=== PATIENT | female | born 1955 | race African-American/Black ===

== ENCOUNTER 2021-11-21 12:43 | Inpatient (IN) | payer MEDICARE, SELFPAY ==
[2021-11-21 13:54] LABS: #Basophils 0.1 thou/uL (0.0-0.2); #Eosinphils 0.1 thou/uL (0.0-0.7); #Lymphocytes 2.8 thou/uL (1.20-3.40); #Monocytes 0.6 thou/uL (0.11-0.59); %Basophils 0.7 % (0.0-1.0); %Eosinophils 1.2 % (0.0-10.0); %Lymphocytes 37.2 % (21.0-51.0); %Neutrophils 52.9 % (42.0-75.0); Hemoglobin 14.6 g/dL (12.0-16.0); Mean Corpuscular HGB CONC 31.9 g/dL (32.0-36.0); Mean Corpuscular Hemoglobin 27.2 pg (27.0-31.0); Mean Corpuscular Volume 85.3 fL (78.0-98.0); Mean Platelet Volume 8.8 fL (7.4-10.4); Platelet Count 285 thou/uL (130-400); RBC Distribution Width 15.1 % (11.5-14.5); Red Blood Cell (RBC) Count 5.36 mill/uL (4.20-5.40); White Blood Cell (WBC) Count 7.6 thou/uL (4.8-10.8)
[2021-11-21 14:11] LABS: ALT (SGPT) 8 U/L (8-55); AST (SGOT) 11 U/L (5-34); Alkaline Phosphatase 84 U/L (40-110); Anion Gap 21 mmol/L (10-20); BUN (Urea Nitrogen) 28 mg/dL (9.8-20.1); Bilirubin, Total 0.6 mg/dL (0.2-1.2); Calc. Creatinine Clearance 0 mL/min (70-130); Calcium 9.9 mg/dL (7.8-10.44); Carbon Dioxide 19 mmol/L (23-31); Chloride 101 mmol/L (98-107); Estimated GFR 38; Globulin 4.2 g/dL (2.4-3.5); Glucose 225 mg/dL (80-115); Potassium 3.4 mmol/L (3.5-5.1); Protein, Total 8.2 g/dL (5.8-8.1); Sodium 138 mmol/L (136-145)
[2021-11-21 14:33] LABS: CKMB 1.4 ng/mL (0-6.6)
[2021-11-21] MEDS ORDERED: Aspirin Chewable 81 MG TAB ONE (17:05)
[2021-11-21] MEDS ORDERED: Nitroglycerin 2% Ointment 1 INCH/1 GM Packet ONE (17:05)
[2021-11-21 17:55] LABS: CKMB 1.4 ng/mL (0-6.6)
[2021-11-21] MEDS ORDERED: Dextrose 50% Abboject 50 ML SYRINGE SLOW IVP PRN (18:21)
[2021-11-21] MEDS ORDERED: HumaLOG 300 UNITS/3 ML VIAL SC PRN (18:21)
[2021-11-21] MEDS ORDERED: Dextrose 5% in Water 1,000 ML IV PRN (18:21)
[2021-11-21] MEDS ORDERED: Docusate 100 MG CAP PO PRN (18:22)
[2021-11-21] MEDS ORDERED: Melatonin 3 MG TAB PO PRN (18:25)
[2021-11-21] MEDS ORDERED: Ondansetron PF 4 MG/2 ML Vial IVP PRN (18:26)
[2021-11-21] MEDS ORDERED: Ondansetron ODT 4 MG TAB PO PRN (18:26)
[2021-11-21] MEDS ORDERED: Electrolyte Replacement Protocol 1 EACH FS SCH ×2 (18:30→18:45)
[2021-11-21] MEDS: hydrALAZINE 20 MG/ML VIAL SLOW IVP PRN (21:27)
[2021-11-21] MEDS: Atorvastatin Calcium 40 MG TAB PO SCH (21:27)
[2021-11-21] MEDS ORDERED: cloNIDine 0.1 MG TAB PO PRN ×2 (21:34→22:05)
[2021-11-21 21:39] LABS: Troponin I 0.021 ng/mL (< 0.028)
[2021-11-21] MEDS: Acetaminophen 325 MG TAB PO PRN (22:11)
[2021-11-21] MEDS ORDERED: Gabapentin 100 MG CAP PO SCH (22:15)
[2021-11-21] MEDS ORDERED: busPIRone HCl 10 MG TAB PO SCH (22:15)
[2021-11-21] MEDS ORDERED: Metoprolol Tartrate 100 MG TAB PO SCH (22:15)
[2021-11-21 22:21] VITALS: BMI 34.9
[2021-11-22] MEDS: hydrALAZINE 20 MG/ML VIAL SLOW IVP PRN (04:00)
[2021-11-22 04:51] LABS: #Basophils 0.1 thou/uL (0.0-0.2); #Eosinphils 0.1 thou/uL (0.0-0.7); #Lymphocytes 4.2 thou/uL (1.20-3.40); #Monocytes 0.7 thou/uL (0.11-0.59); #Neutrophils 3.5 thou/uL (1.40-6.50); %Eosinophils 1.4 % (0.0-10.0); %Lymphocytes 48.7 % (21.0-51.0); %Monocytes 8.4 % (0.0-10.0); %Neutrophils 40.5 % (42.0-75.0); Hemoglobin 12.4 g/dL (12.0-16.0); Mean Corpuscular HGB CONC 34.1 g/dL (32.0-36.0); Mean Corpuscular Hemoglobin 27.9 pg (27.0-31.0); Mean Platelet Volume 8.4 fL (7.4-10.4); Platelet Count 225 thou/uL (130-400); RBC Distribution Width 15.1 % (11.5-14.5); Red Blood Cell (RBC) Count 4.43 mill/uL (4.20-5.40); White Blood Cell (WBC) Count 8.6 thou/uL (4.8-10.8)
[2021-11-22 05:09] LABS: Anion Gap 17 mmol/L (10-20); BUN (Urea Nitrogen) 37 mg/dL (9.8-20.1); Calc. Creatinine Clearance 58 mL/min (70-130); Calcium 9.1 mg/dL (7.8-10.44); Carbon Dioxide 22 mmol/L (23-31); Cardiac Risk 5.6 (Less than 4.5); Chloride 103 mmol/L (98-107); Cholesterol 174 mg/dl (< 200 Desired); Estimated GFR 41; Glucose 144 mg/dL (80-115); HDL Cholesterol 31 mg/dL (>60 Neg Risk); LDL Cholesterol, Calculated 98 mg/dL; Magnesium 1.9 mg/dL (1.6-2.6); Potassium 3.1 mmol/L (3.5-5.1); Sodium 139 mmol/L (136-145); Triglycerides 225 mg/dL (Less than 150)
[2021-11-22 05:15] LABS: Hemoglobin A1c 7.1 % (4.0-6.0)
[2021-11-22] MEDS ORDERED: Magnesium 2 GM/50 ML(in water) 2 GM in Premix Bag 1 BAG IVPB SCH ×2 (06:00→08:00)
[2021-11-22] MEDS ORDERED: Potassium Chloride 20 MEQ TAB PO SCH (08:00)
[2021-11-22] MEDS: Aspirin 81 mg Enteric Coated Tablet PO SCH (08:12)
[2021-11-22] MEDS: busPIRone HCl 10 MG TAB PO SCH ×2 (08:12→22:14)
[2021-11-22] MEDS: Metoprolol Tartrate 100 MG TAB PO SCH ×2 (08:12→22:16)
[2021-11-22] MEDS: metFORMIN 500 MG TAB PO SCH ×2 (08:12→15:37)
[2021-11-22] MEDS: Insulin Glargine 30 UNITS/0.3 ML VIAL SC SCH ×2 (08:13→22:16)
[2021-11-22] MEDS: Enoxaparin Sodium 40 MG/0.4 ML SYRINGE SC SCH (08:13)
[2021-11-22] MEDS: Gabapentin 100 MG CAP PO SCH ×3 (08:13→22:15)
[2021-11-22] MEDS ORDERED: metFORMIN 500 MG TAB PO SCH (09:00)
[2021-11-22] MEDS ORDERED: Amlodipine 10 MG TAB PO SCH (09:00)
[2021-11-22] MEDS: HumaLOG 300 UNITS/3 ML VIAL SC PRN (11:36)
[2021-11-22] MEDS: Acetaminophen 325 MG TAB PO PRN ×2 (11:54→22:17)
[2021-11-22] MEDS ORDERED: NIFEdipine XL 90 MG TAB PO SCH (14:45)
[2021-11-22] MEDS ORDERED: NIFEdipine XL 60 MG TAB PO SCH (15:45)
[2021-11-22] MEDS: Atorvastatin Calcium 40 MG TAB PO SCH (22:14)
[2021-11-22] MEDS: cloNIDine 0.1 MG TAB PO SCH (22:14)
[2021-11-23 06:46] LABS: Hemoglobin 11.6 g/dL (12.0-16.0); Mean Corpuscular HGB CONC 32.2 g/dL (32.0-36.0); Mean Corpuscular Hemoglobin 26.7 pg (27.0-31.0); Mean Corpuscular Volume 82.8 fL (78.0-98.0); Mean Platelet Volume 8.8 fL (7.4-10.4); Platelet Count 218 thou/uL (130-400); RBC Distribution Width 15.2 % (11.5-14.5); Red Blood Cell (RBC) Count 4.36 mill/uL (4.20-5.40); White Blood Cell (WBC) Count 7.3 thou/uL (4.8-10.8)
[2021-11-23 06:47] LABS: Anion Gap 14 mmol/L (10-20); BUN (Urea Nitrogen) 32 mg/dL (9.8-20.1); Calc. Creatinine Clearance 71 mL/min (70-130); Calcium 9.2 mg/dL (7.8-10.44); Carbon Dioxide 26 mmol/L (23-31); Chloride 104 mmol/L (98-107); Estimated GFR 52; Glucose 133 mg/dL (80-115); Potassium 3.5 mmol/L (3.5-5.1); Sodium 140 mmol/L (136-145)
[2021-11-23 06:55] LABS: Bacteria/HPF None Seen HPF (None Seen); Bilirubin Negative (Negative); Blood, Urine Negative (Negative); Clarity Clear (Clear); Glucose, Urine (Dipstick) Normal (Negative); Ketone, Urine Negative (Negative); Leukocyte Negative Leu/uL (Negative); Nitrite Negative (Negative); Protein, Urine (Dipstick) 10 mg/dL (Neg-Trace); Specific Gravity, Urine 1.021 (1.002-1.036); Squamous Epithelial 0-3 HPF (0-3); Urobilinogen Normal mg/dL (Less than 2); WBC/HPF 0-3 HPF (0-3); pH, Urine 5.5 (5.0-9.0)
[2021-11-23] MEDS ORDERED: Potassium Chloride 20 MEQ TAB PO SCH (08:00)
[2021-11-23 08:21] LABS: Eosinophils 1 % (0-10); Lymphocytes 56 % (21-51); MDiff Complete? YES; Monocytes 10 % (0-10); Neutrophil 33 % (42-75); Platelet Morphology Comment Appears Adequate; Polychromasia SLIGHT = 2-3 cells (100X) (0-2/hpf)
[2021-11-23] MEDS: Enoxaparin Sodium 40 MG/0.4 ML SYRINGE SC SCH (08:22)
[2021-11-23] MEDS: cloNIDine 0.1 MG TAB PO SCH (08:22)
[2021-11-23] MEDS: Aspirin 81 mg Enteric Coated Tablet PO SCH (08:22)
[2021-11-23] MEDS: busPIRone HCl 10 MG TAB PO SCH (08:22)
[2021-11-23] MEDS: Gabapentin 100 MG CAP PO SCH (08:23)
[2021-11-23] MEDS: Metoprolol Tartrate 100 MG TAB PO SCH (08:24)
[2021-11-23] MEDS: Insulin Glargine 30 UNITS/0.3 ML VIAL SC SCH (08:24)
[2021-11-23] MEDS ORDERED: NIFEdipine XL 60 MG TAB PO SCH (09:00)
[2021-11-23] MEDS: HumaLOG 300 UNITS/3 ML VIAL SC PRN (10:54)
[2021-11-23 12:28] VITALS: BP 164/93; TEMP 97.4
== END 2021-11-23 14:26 | disposition home or self-care (01) | DRG 683 ==
LOC: ERS 12:43 → ERHOLD 17:21 → 2SW 20:34 → OBSVTOIN 11-22 14:36
PROVIDERS: ADMIT Internal Medicine; ATTEND Internal Medicine
DX: N17.9 Acute kidney failure, unspecified (principal); I16.1 Hypertensive emergency; Z20.822 Contact with and (suspected) exposure to COVID-19; E78.5 Hyperlipidemia, unspecified; I48.0 Paroxysmal atrial fibrillation; I16.0 Hypertensive urgency; I10 Essential (primary) hypertension; E11.65 Type 2 diabetes mellitus with hyperglycemia; Z59.00 Homelessness unspecified; Z91.14 Patient's other noncompliance with medication regimen; Z79.84 Long term (current) use of oral hypoglycemic drugs; Z79.4 Long term (current) use of insulin; Z79.899 Other long term (current) drug therapy
CPT/HCPCS: 36415; 36416; 80048; 80053; 80061; 81001; 82553; 83036; 83735; 84443; 84484; 85025; 93005; 93306; 93880; 96360; 96361; 96372; 96374; 96375; 96376; G0378; J0360; J1650; J1815; J3475; U0003; U0005

== ENCOUNTER 2021-12-29 21:20 | Emergency (ER) | payer MEDICARE ==
[2021-12-29 22:04] LABS: #Eosinphils 0.1 thou/uL (0.0-0.7); #Lymphocytes 2.8 thou/uL (1.20-3.40); #Monocytes 0.4 thou/uL (0.11-0.59); #Neutrophils 3.6 thou/uL (1.40-6.50); %Basophils 0.3 % (0.0-1.0); %Eosinophils 1.6 % (0.0-10.0); %Lymphocytes 40.2 % (21.0-51.0); Hemoglobin 12.4 g/dL (12.0-16.0); Mean Corpuscular HGB CONC 34.5 g/dL (32.0-36.0); Mean Corpuscular Hemoglobin 27.6 pg (27.0-31.0); Mean Platelet Volume 8.6 fL (7.4-10.4); Platelet Count 200 thou/uL (130-400); RBC Distribution Width 14.5 % (11.5-14.5)
[2021-12-29 22:43] LABS: Bacteria/HPF 1+ HPF (None Seen); Bilirubin Negative (Negative); Blood, Urine Negative (Negative); Clarity Clear (Clear); Glucose, Urine (Dipstick) 50 mg/dL (Negative); Ketone, Urine Negative (Negative); Leukocyte Negative Leu/uL (Negative); Nitrite Negative (Negative); Protein, Urine (Dipstick) 30 mg/dL (Neg-Trace); RBC/HPF 0-3 HPF (0-3); Specific Gravity, Urine 1.022 (1.002-1.036); Urobilinogen Normal mg/dL (Less than 2); WBC/HPF 0-3 HPF (0-3); pH, Urine 5.5 (5.0-9.0)
[2021-12-29] MEDS ORDERED: Morphine 4 MG/ML VIAL ONE (23:52)
[2021-12-29] MEDS ORDERED: Ondansetron PF 4 MG/2 ML Vial ONE (23:53)
[2021-12-30 01:01] LABS: ALT (SGPT) 7 U/L (8-55); AST (SGOT) 10 U/L (5-34); Albumin 3.8 g/dL (3.4-4.8); Alkaline Phosphatase 74 U/L (40-110); Anion Gap 15 mmol/L (10-20); BUN (Urea Nitrogen) 31 mg/dL (9.8-20.1); Bilirubin, Total 0.8 mg/dL (0.2-1.2); Calc. Creatinine Clearance 0 mL/min (70-130); Calcium 9.5 mg/dL (7.8-10.44); Carbon Dioxide 25 mmol/L (23-31); Chloride 102 mmol/L (98-107); Estimated GFR 50; Globulin 3.6 g/dL (2.4-3.5); Glucose 155 mg/dL (80-115); Lipase 14 U/L (8-78); Protein, Total 7.4 g/dL (5.8-8.1); Sodium 139 mmol/L (136-145)
[2021-12-30] MEDS ORDERED: Potassium Chloride 20 MEQ TAB ONE (02:07)
== END 2021-12-30 03:25 | disposition home or self-care (01) ==
LOC: ERS 21:20
DX: K59.00 Constipation, unspecified (principal); E87.6 Hypokalemia; K76.9 Liver disease, unspecified; I10 Essential (primary) hypertension; E11.9 Type 2 diabetes mellitus without complications
CPT/HCPCS: 36415; 74177; 80053; 81003; 81015; 83690; 85025; 93005; 94760; 96374; 96375; J2270; J2405

== ENCOUNTER 2022-05-09 17:00 | Inpatient (IN) | payer MEDICARE, OTHER ==
[2022-05-09] MEDS ORDERED: hydrALAZINE 20 MG/ML VIAL ONE ×2 (18:14→20:11)
[2022-05-09 18:24] LABS: #Eosinphils 0.2 thou/uL (0.0-0.7); #Lymphocytes 3.1 thou/uL (1.20-3.40); #Monocytes 0.5 thou/uL (0.11-0.59); #Neutrophils 4.7 thou/uL (1.40-6.50); %Basophils 0.5 % (0.0-1.0); %Eosinophils 2.5 % (0.0-10.0); %Lymphocytes 36.7 % (21.0-51.0); %Neutrophils 54.3 % (42.0-75.0); Mean Corpuscular Hemoglobin 27.8 pg (27.0-31.0); Mean Corpuscular Volume 81.8 fl (78.0-98.0); Mean Platelet Volume 8.3 fL (7.4-10.4); Platelet Count 226 10x3/uL (130-400); RBC Distribution Width 14.7 % (11.5-14.5); White Blood Cell (WBC) Count 8.6 10x3/uL (4.8-10.8)
[2022-05-09 18:46] LABS: ALT (SGPT) Less than 7 U/L (8-55); AST (SGOT) 10 U/L (5-34); Albumin 3.5 g/dL (3.4-4.8); Alkaline Phosphatase 90 U/L (40-110); Anion Gap 14 mmol/L (10-20); BUN (Urea Nitrogen) 26 mg/dL (9.8-20.1); Bilirubin, Total 0.4 mg/dL (0.2-1.2); Calc. Creatinine Clearance 0 mL/min (70-130); Calcium 8.9 mg/dL (7.8-10.44); Carbon Dioxide 26 mmol/L (23-31); Chloride 101 mmol/L (98-107); Estimated GFR 42; Globulin 3.7 g/dL (2.4-3.5); Glucose 158 mg/dL (80-115); Magnesium 1.9 mg/dL (1.6-2.6); Protein, Total 7.2 g/dL (5.8-8.1); Sodium 138 mmol/L (136-145)
[2022-05-09] MEDS ORDERED: Nitroglycerin 2% Ointment 1 INCH/1 GM Packet ONE (20:10)
[2022-05-09] MEDS ORDERED: Potassium Chloride 20 MEQ TAB ONE ×2 (20:10)
[2022-05-09] MEDS ORDERED: Acetaminophen 325 MG TAB PO PRN (20:31)
[2022-05-09] MEDS ORDERED: Senokot S 8.6-50 MG TAB PO PRN (20:31)
[2022-05-09] MEDS ORDERED: HYDROcodone/Acetaminophen 7.5/325 mg Tablet PO PRN (20:31)
[2022-05-09] MEDS ORDERED: Nitroglycerin 0.4 MG TAB (25 Tab Bottle) SL PRN (20:42)
[2022-05-09] MEDS ORDERED: Dextrose 50% Abboject 50 ML SYRINGE SLOW IVP PRN (21:02)
[2022-05-09] MEDS ORDERED: Dextrose 5% in Water 1,000 ML IV PRN (21:02)
[2022-05-09] MEDS: Metoprolol Tartrate 100 MG TAB PO SCH (22:24)
[2022-05-09] MEDS: Atorvastatin Calcium 20 MG TAB PO SCH (22:24)
[2022-05-09 22:54] VITALS: BMI 40.8
[2022-05-09 23:38] LABS: Troponin I 0.021 ng/mL (< 0.028)
[2022-05-10] MEDS ORDERED: hydrALAZINE 25 MG TAB PO SCH (00:15)
[2022-05-10 01:48] LABS: Troponin I 0.021 ng/mL (< 0.028)
[2022-05-10 05:32] LABS: #Eosinphils 0.2 thou/uL (0.0-0.7); #Lymphocytes 2.6 thou/uL (1.20-3.40); #Monocytes 0.5 thou/uL (0.11-0.59); #Neutrophils 4.5 thou/uL (1.40-6.50); %Basophils 0.1 % (0.0-1.0); %Eosinophils 2.3 % (0.0-10.0); %Lymphocytes 33.3 % (21.0-51.0); %Monocytes 6.8 % (0.0-10.0); %Neutrophils 57.5 % (42.0-75.0); Hemoglobin 11.5 g/dL (12.0-16.0); Mean Corpuscular HGB CONC 34.1 g/dL (32.0-36.0); Mean Corpuscular Hemoglobin 27.8 pg (27.0-31.0); Mean Corpuscular Volume 81.5 fl (78.0-98.0); Mean Platelet Volume 8.7 fL (7.4-10.4); Platelet Count 227 10x3/uL (130-400); RBC Distribution Width 15.1 % (11.5-14.5); Red Blood Cell (RBC) Count 4.12 mill/uL (4.20-5.40); White Blood Cell (WBC) Count 7.9 10x3/uL (4.8-10.8)
[2022-05-10 05:39] LABS: ALT (SGPT) 7 U/L (8-55); AST (SGOT) 9 U/L (5-34); Albumin 3.3 g/dL (3.4-4.8); Alkaline Phosphatase 87 U/L (40-110); Anion Gap 14 mmol/L (10-20); BUN (Urea Nitrogen) 24 mg/dL (9.8-20.1); Bilirubin, Total 0.7 mg/dL (0.2-1.2); Calc. Creatinine Clearance 72 mL/min (70-130); Carbon Dioxide 25 mmol/L (23-31); Chloride 102 mmol/L (98-107); Estimated GFR 51; Globulin 3.4 g/dL (2.4-3.5); Glucose 192 mg/dL (80-115); Potassium 3.3 mmol/L (3.5-5.1); Protein, Total 6.7 g/dL (5.8-8.1); Sodium 138 mmol/L (136-145)
[2022-05-10] MEDS ORDERED: Electrolyte Replacement Protocol 1 EACH FS SCH (07:15)
[2022-05-10] MEDS: Potassium Chloride 20 MEQ TAB PO SCH (08:25)
[2022-05-10] MEDS: NIFEdipine XL 60 MG TAB PO SCH (08:46)
[2022-05-10] MEDS: hydrALAZINE 25 MG TAB PO SCH ×2 (08:47→16:03)
[2022-05-10] MEDS ORDERED: Aspirin 325 mg Enteric Coated Tablet PO SCH (09:00)
[2022-05-10] MEDS ORDERED: Magnesium 2 GM/50 ML(in water) 2 GM in Premix Bag 1 BAG IVPB SCH (09:00)
[2022-05-10] MEDS ORDERED: Potassium Chloride 20 MEQ TAB PO SCH (09:00)
[2022-05-10] MEDS ORDERED: Enoxaparin Sodium 40 MG/0.4 ML SYRINGE SC SCH ×2 (09:00→21:00)
[2022-05-10] MEDS ORDERED: Nitroglycerin 2% Ointment 1 INCH/1 GM Packet TOP SCH (09:00)
[2022-05-10] MEDS ORDERED: NIFEdipine XL 30 MG TAB PO SCH (11:00)
[2022-05-10] MEDS: Metoprolol Tartrate 100 MG TAB PO SCH ×2 (11:01→21:00)
[2022-05-10] MEDS: HYDROcodone/Acetaminophen 7.5/325 mg Tablet PO PRN ×2 (12:13→21:01)
[2022-05-10] MEDS ORDERED: Minoxidil 2.5 MG TAB PO SCH ×2 (12:30)
[2022-05-10] MEDS ORDERED: cloNIDine 0.1 MG TAB PO PRN (12:37)
[2022-05-10] MEDS: HumaLOG 300 UNITS/3 ML VIAL SC PRN (18:03)
[2022-05-10] MEDS: cloNIDine 0.1 MG TAB PO SCH (21:00)
[2022-05-10] MEDS: Atorvastatin Calcium 20 MG TAB PO SCH (21:00)
[2022-05-11 07:59] LABS: Anion Gap 13 mmol/L (10-20); BUN (Urea Nitrogen) 27 mg/dL (9.8-20.1); Calc. Creatinine Clearance 66 mL/min (70-130); Carbon Dioxide 26 mmol/L (23-31); Chloride 104 mmol/L (98-107); Estimated GFR 45; Glucose 180 mg/dL (80-115); Potassium 3.7 mmol/L (3.5-5.1); Sodium 139 mmol/L (136-145)
[2022-05-11] MEDS ORDERED: Aspirin 81 mg Enteric Coated Tablet PO SCH (09:00)
[2022-05-11] MEDS ORDERED: Minoxidil 2.5 MG TAB PO SCH (09:00)
[2022-05-11] MEDS ORDERED: Escitalopram Oxalate 10 mg Tablet PO SCH (09:00)
[2022-05-11] MEDS: Potassium Chloride 20 MEQ TAB PO SCH (09:19)
[2022-05-11] MEDS: NIFEdipine XL 60 MG TAB PO SCH (09:20)
[2022-05-11] MEDS: cloNIDine 0.1 MG TAB PO SCH (09:20)
[2022-05-11] MEDS: Metoprolol Tartrate 100 MG TAB PO SCH (09:20)
[2022-05-11 11:39] VITALS: BP 158/77; TEMP 99.1
[2022-05-11] MEDS: HumaLOG 300 UNITS/3 ML VIAL SC PRN (12:17)
== END 2022-05-11 14:48 | disposition home or self-care (01) | DRG 305 ==
LOC: ERS 17:00 → 2SW 19:53 → OBSVTOIN 05-11 10:39
PROVIDERS: ADMIT Family Medicine; ATTEND Internal Medicine
DX: I16.0 Hypertensive urgency (principal); N17.9 Acute kidney failure, unspecified; I50.32 Chronic diastolic (congestive) heart failure; Z68.41 Body mass index [BMI] 40.0-44.9, adult; Z20.822 Contact with and (suspected) exposure to COVID-19; F41.9 Anxiety disorder, unspecified; F32.A Depression, unspecified; E78.5 Hyperlipidemia, unspecified; E87.6 Hypokalemia; E83.42 Hypomagnesemia; I13.0 Hypertensive heart and chronic kidney disease with heart failure and stage 1 through stage 4 chronic kidney disease, or unspecified chronic kidney disease; E11.22 Type 2 diabetes mellitus with diabetic chronic kidney disease; N18.30 Chronic kidney disease, stage 3 unspecified; E66.01 Morbid (severe) obesity due to excess calories; D53.9 Nutritional anemia, unspecified; Z88.2 Allergy status to sulfonamides; Z88.1 Allergy status to other antibiotic agents; Z79.899 Other long term (current) drug therapy; Z90.710 Acquired absence of both cervix and uterus; Z79.4 Long term (current) use of insulin; Z91.14 Patient's other noncompliance with medication regimen
CPT/HCPCS: 36415; 36416; 71045; 80048; 80053; 83735; 83880; 84484; 85025; 93005; 94760; 96365; 96374; 96376; G0378; J0360; J1815; J3475; U0003; U0005

== ENCOUNTER 2022-06-05 05:48 | Day surgery (SDC) | payer MEDICARE ==
[2022-06-02 10:20] VITALS: BMI 37.2
[2022-06-05] MEDS ORDERED: Lidocaine 1% PF 5 ML VIAL ONE (07:33)
[2022-06-05] MEDS ORDERED: PROPOFOL 200 MG/20 ML VIAL ONE (07:33)
== END 2022-06-05 10:02 | disposition home or self-care (01) ==
LOC: SDC 05:48
PROVIDERS: ATTEND Internal Medicine Gastroenterology
PROC: 0DB98ZX Excision of Duodenum, Via Natural or Artificial Opening Endoscopic, Diagnostic (ICD-10-PCS; principal; 2022-06-05)
PROC: 0DB78ZX Excision of Stomach, Pylorus, Via Natural or Artificial Opening Endoscopic, Diagnostic (ICD-10-PCS; 2022-06-05)
PROC: 0DBK8ZX Excision of Ascending Colon, Via Natural or Artificial Opening Endoscopic, Diagnostic (ICD-10-PCS; 2022-06-05)
PROC: 0DBL8ZX Excision of Transverse Colon, Via Natural or Artificial Opening Endoscopic, Diagnostic (ICD-10-PCS; 2022-06-05)
PROC: 0DBN8ZX Excision of Sigmoid Colon, Via Natural or Artificial Opening Endoscopic, Diagnostic (ICD-10-PCS; 2022-06-05)
PROC: 3E0H8KZ Introduction of Other Diagnostic Substance into Lower GI, Via Natural or Artificial Opening Endoscopic (ICD-10-PCS; 2022-06-05)
DX: D12.2 Benign neoplasm of ascending colon (principal); D12.3 Benign neoplasm of transverse colon; K51.40 Inflammatory polyps of colon without complications; C49.A2 Gastrointestinal stromal tumor of stomach; K29.51 Unspecified chronic gastritis with bleeding; K59.00 Constipation, unspecified; I48.91 Unspecified atrial fibrillation; I11.0 Hypertensive heart disease with heart failure; I50.9 Heart failure, unspecified; E78.5 Hyperlipidemia, unspecified; E11.9 Type 2 diabetes mellitus without complications; Z79.4 Long term (current) use of insulin; Z79.82 Long term (current) use of aspirin; Z79.899 Other long term (current) drug therapy; Z88.1 Allergy status to other antibiotic agents; Z88.2 Allergy status to sulfonamides
CPT/HCPCS: 36416; 88305; 88341; 88342; J2704

== ENCOUNTER 2024-04-14 15:26 | Inpatient (IN) | payer MEDICARE ==
[~2024-04-14 15:26] MED LIST: Iopamidol-370 76% 500 ML MDV (1 ML CHARGE) ONE
[2024-04-14 16:35] LABS: #Basophils 0.04 10x3/uL (0.0-0.2); %Basophils 0.5 % (0.0-1.0); %Eosinophils 1.6 % (0.0-10.0); %Lymphocytes 29.7 % (21.0-51.0); %Neutrophils 60.6 % (42.0-75.0); Hemoglobin 10.4 g/dL (12.0-16.0); Mean Corpuscular HGB CONC 31.5 g/dL (32.0-36.0); Mean Corpuscular Hemoglobin 24.3 pg (27.0-31.0); Mean Corpuscular Volume 77.1 fL (78.0-98.0); Mean Platelet Volume 10.5 fL (7.4-10.4); Platelet Count 216 10x3/uL (130-400); RBC Distribution Width 16.6 % (11.5-14.5); Red Blood Cell (RBC) Count 4.28 mill/uL (4.20-5.40)
[2024-04-14 16:53] LABS: ALT (SGPT) 18 U/L (8-55); AST (SGOT) 17 U/L (5-34); Albumin 3.6 g/dL (3.4-4.8); Alkaline Phosphatase 104 U/L (40-110); Anion Gap 14 mmol/L (10-20); BUN (Urea Nitrogen) 19 mg/dL (9.8-20.1); Bilirubin, Total 0.6 mg/dL (0.2-1.2); Calc. Creatinine Clearance 0 mL/min (70-130); Calcium 8.9 mg/dL (7.8-10.44); Carbon Dioxide 22 mmol/L (23-31); Chloride 109 mmol/L (98-107); Estimated GFR 40; Globulin 4.2 g/dL (2.4-3.5); Glucose 93 mg/dL (80-115); Potassium 3.2 mmol/L (3.5-5.1); Protein, Total 7.8 g/dL (5.8-8.1); Sodium 142 mmol/L (136-145)
[2024-04-14] MEDS ORDERED: Ondansetron PF 4 MG/2 ML Vial ONE (16:54)
[2024-04-14 16:58] LABS: Troponin I 0.025 ng/mL (< 0.028)
[2024-04-14] MEDS ORDERED: Nitroglycerin 2% Ointment 1 INCH/1 GM Packet ONE (19:22)
[2024-04-14 19:26] LABS: Bacteria/HPF 2+ HPF (None Seen); Bilirubin Negative (Negative); Blood, Urine Negative (Negative); CAUTI Indications for Culture Pelvic or flank pain; Clarity Turbid (Clear); Glucose, Urine (Dipstick) Normal (Negative); Ketone, Urine Negative (Negative); Leukocyte 75 Leu/uL (Negative); Nitrite Negative (Negative); Protein, Urine (Dipstick) 50 mg/dL (Neg-Trace); RBC/HPF 0-3 HPF (0-3); Specific Gravity, Urine 1.011 (1.002-1.036); Squamous Epithelial 0-3 HPF (0-3); pH, Urine 6.5 (5.0-9.0)
[2024-04-14 19:28] LABS: Urine Culture Reflex Yes Yes
[2024-04-14] MEDS ORDERED: hydrALAZINE 20 MG/ML VIAL ONE (20:06)
[2024-04-14] MEDS ORDERED: niCARdipine 25 MG/10 ML SDV ONE (21:31)
[2024-04-14] MEDS ORDERED: Ondansetron ODT 4 MG TAB SL PRN (22:00)
[2024-04-14] MEDS ORDERED: Ondansetron PF 4 MG/2 ML Vial IVP PRN (22:00)
[2024-04-15] MEDS ORDERED: niCARdipine 25 MG/10 ML SDV ONE (00:37)
[2024-04-15] MEDS: niCARdipine 25 MG in Sodium Chloride 0.9% 250 ML 250 ML IVPB SCH (01:00)
[2024-04-15 01:29] LABS: Troponin I 0.032 ng/mL (< 0.028)
[2024-04-15] MEDS: Acetaminophen 325 MG TAB PO PRN (01:33)
[2024-04-15] MEDS ORDERED: Acetaminophen 650 MG Suppository PR PRN (01:41)
[2024-04-15] MEDS ORDERED: Ondansetron ODT 4 MG TAB PO PRN (01:41)
[2024-04-15] MEDS ORDERED: Insulin Lispro 100 UNIT/ML 10 ML VIAL SC PRN (01:56)
[2024-04-15] MEDS ORDERED: Dextrose 5% in Water 1,000 ML IV PRN (01:56)
[2024-04-15] MEDS ORDERED: Glucagon 1 MG/ML KIT IM PRN (01:56)
[2024-04-15] MEDS ORDERED: Dextrose 50% Abboject 50 ML SYRINGE SLOW IVP PRN (01:56)
[2024-04-15] MEDS ORDERED: Ipratropium/Albuterol 3 ML NEB NEB PRN (02:00)
[2024-04-15 04:56] LABS: #Basophils 0.03 10x3/uL (0.0-0.2); %Basophils 0.3 % (0.0-1.0); %Eosinophils 0.8 % (0.0-10.0); %Lymphocytes 19.3 % (21.0-51.0); %Neutrophils 72.1 % (42.0-75.0); Hematocrit 32.3 % (36.0-47.0); Mean Corpuscular Hemoglobin 23.9 pg (27.0-31.0); Mean Corpuscular Volume 77.1 fL (78.0-98.0); Mean Platelet Volume 10.4 fL (7.4-10.4); Platelet Count 203 10x3/uL (130-400); RBC Distribution Width 16.8 % (11.5-14.5); Red Blood Cell (RBC) Count 4.19 mill/uL (4.20-5.40)
[2024-04-15 05:15] LABS: Troponin I 0.038 ng/mL (< 0.028)
[2024-04-15 05:31] LABS: Anion Gap 15 mmol/L (10-20); BUN (Urea Nitrogen) 15 mg/dL (9.8-20.1); Calc. Creatinine Clearance 84 mL/min (70-130); Calcium 8.5 mg/dL (7.8-10.44); Carbon Dioxide 22 mmol/L (23-31); Chloride 110 mmol/L (98-107); Estimated GFR 61; Glucose 135 mg/dL (80-115); Potassium 2.8 mmol/L (3.5-5.1); Sodium 144 mmol/L (136-145)
[2024-04-15] MEDS: Furosemide 40 MG (4 mL) VIAL SLOW IVP SCH (06:12)
[2024-04-15] MEDS: Acetaminophen 325 MG TAB PO SCH (06:12)
[2024-04-15] MEDS: Ciprofloxacin 500 MG TAB PO SCH (06:13)
[2024-04-15] MEDS ORDERED: Electrolyte Replacement Protocol 1 EACH FS SCH (07:30)
[2024-04-15] MEDS ORDERED: Electrolyte Replacement Protocol FS PRN (08:00)
[2024-04-15] MEDS ORDERED: Heparin 5,000 UNITS/ML VIAL SC SCH (09:00)
[2024-04-15] MEDS: Escitalopram Oxalate 10 mg Tablet PO SCH (09:05)
[2024-04-15] MEDS: Apixaban 5 MG TAB PO SCH (09:05)
[2024-04-15] MEDS: hydrALAZINE 25 MG TAB PO SCH (09:05)
[2024-04-15] MEDS: Famotidine 20 MG TAB PO SCH ×2 (09:05→21:08)
[2024-04-15] MEDS: Insulin Glargine 30 UNITS/0.3 ML VIAL SC SCH (09:05)
[2024-04-15] MEDS: Potassium Chloride 20 MEQ TAB PO SCH ×2 (09:05→21:05)
[2024-04-15] MEDS: Losartan 25 MG TAB PO SCH (09:05)
[2024-04-15] MEDS: Famotidine/PF 20 mg/2ml Vial SLOW IVP SCH ×2 (09:06→21:10)
[2024-04-15] MEDS: Pantoprazole 40 MG VIAL IVP SCH (09:06)
[2024-04-15] MEDS: Polyethylene Glycol 3350 17 GM Packet PO SCH (09:06)
[2024-04-15] MEDS: Potassium Bicarbonate/Cit Ac 20 MEQ TAB PER TUBE SCH (09:09)
[2024-04-15] MEDS: Labetalol HCl 100 MG/20 ML VIAL SLOW IVP PRN (10:02)
[2024-04-15] MEDS: cloNIDine 0.1mg/24 Hour PATCH TD SCH (10:53)
[2024-04-15] MEDS: cefTRIAXone\\ROCEPHIN 1 GM in Sodium Chloride 0.9% 100 ML IVPB SCH (11:16)
[2024-04-15] MEDS: dilTIAZem SR 90 MG CAP PO SCH (11:50)
[2024-04-15] MEDS: hydrALAZINE 20 MG/ML VIAL SLOW IVP PRN (13:19)
[2024-04-15] MEDS: Insulin Lispro 100 UNIT/ML 10 ML VIAL SC PRN (13:26)
[2024-04-15] MEDS: cloNIDine 0.1 MG TAB PO SCH ×2 (15:30→21:08)
[2024-04-15] MEDS ORDERED: Lorazepam 2 MG/ML VIAL SLOW IVP PRN (16:25)
[2024-04-15] MEDS: Spironolactone 25 MG TAB PO SCH (18:35)
[2024-04-15 20:18] LABS: Potassium 3.3 mmol/L (3.5-5.1)
[2024-04-15] MEDS: Atorvastatin Calcium 40 MG TAB PO SCH (21:07)
[2024-04-15] MEDS: Minoxidil 2.5 MG TAB PO SCH (21:07)
[2024-04-16 05:36] VITALS: BMI 37.4
[2024-04-16] MEDS ORDERED: DULoxetine 30 MG CAP PO SCH (09:00)
[2024-04-16] MEDS: Pantoprazole DR 40 MG TAB PO SCH (09:02)
[2024-04-16 11:55] LABS: #Basophils 0.03 10x3/uL (0.0-0.2); %Basophils 0.4 % (0.0-1.0); %Eosinophils 2.2 % (0.0-10.0); %Lymphocytes 25.6 % (21.0-51.0); %Monocytes 7.9 % (0.0-10.0); %Neutrophils 63.5 % (42.0-75.0); Hematocrit 33.4 % (36.0-47.0); Hemoglobin 10.4 g/dL (12.0-16.0); Mean Corpuscular HGB CONC 31.1 g/dL (32.0-36.0); Mean Corpuscular Hemoglobin 24.2 pg (27.0-31.0); Mean Corpuscular Volume 77.7 fL (78.0-98.0); Mean Platelet Volume 9.9 fL (7.4-10.4); Platelet Count 202 10x3/uL (130-400); RBC Distribution Width 17.2 % (11.5-14.5)
[2024-04-16 12:16] LABS: ALT (SGPT) 11 U/L (8-55); AST (SGOT) 13 U/L (5-34); Albumin 3.4 g/dL (3.4-4.8); Alkaline Phosphatase 95 U/L (40-110); Anion Gap 14 mmol/L (10-20); BUN (Urea Nitrogen) 13 mg/dL (9.8-20.1); Bilirubin, Total 0.7 mg/dL (0.2-1.2); Calc. Creatinine Clearance 83 mL/min (70-130); Calcium 8.9 mg/dL (7.8-10.44); Carbon Dioxide 24 mmol/L (23-31); Chloride 107 mmol/L (98-107); Estimated GFR 61; Globulin 4.1 g/dL (2.4-3.5); Glucose 177 mg/dL (80-115); Magnesium 1.8 mg/dL (1.6-2.6); Potassium 3.9 mmol/L (3.5-5.1); Protein, Total 7.5 g/dL (5.8-8.1); Sodium 141 mmol/L (136-145)
[2024-04-16] MEDS: Hydrochlorothiazide 25 MG TAB PO SCH (16:07)
[2024-04-16] MEDS: Magnesium 2 GM/50 ML(in water) 2 GM in Premix 1 BAG IVPB SCH (21:13)
[2024-04-17 04:22] LABS: #Basophils 0.04 10x3/uL (0.0-0.2); %Basophils 0.5 % (0.0-1.0); %Eosinophils 2.4 % (0.0-10.0); %Lymphocytes 25.8 % (21.0-51.0); %Monocytes 8.9 % (0.0-10.0); Hematocrit 32.6 % (36.0-47.0); Hemoglobin 10.1 g/dL (12.0-16.0); Mean Corpuscular Hemoglobin 24.1 pg (27.0-31.0); Mean Corpuscular Volume 77.8 fL (78.0-98.0); Platelet Count 213 10x3/uL (130-400); RBC Distribution Width 17.1 % (11.5-14.5); Red Blood Cell (RBC) Count 4.19 mill/uL (4.20-5.40)
[2024-04-17 04:51] LABS: ALT (SGPT) 11 U/L (8-55); AST (SGOT) 13 U/L (5-34); Albumin 3.2 g/dL (3.4-4.8); Alkaline Phosphatase 85 U/L (40-110); Anion Gap 14 mmol/L (10-20); BUN (Urea Nitrogen) 18 mg/dL (9.8-20.1); Bilirubin, Total 0.6 mg/dL (0.2-1.2); Calc. Creatinine Clearance 68 mL/min (70-130); Calcium 9.3 mg/dL (7.8-10.44); Carbon Dioxide 27 mmol/L (23-31); Chloride 104 mmol/L (98-107); Estimated GFR 48; Glucose 140 mg/dL (80-115); Magnesium 2.2 mg/dL (1.6-2.6); Potassium 3.5 mmol/L (3.5-5.1); Protein, Total 7.2 g/dL (5.8-8.1); Sodium 141 mmol/L (136-145)
[2024-04-17] MEDS: Potassium Chloride 20 MEQ TAB PO SCH (08:43)
[2024-04-17] MEDS: Hydrochlorothiazide 25 MG TAB PO SCH (08:44)
[2024-04-17] MEDS: HYDROcodone/Acetaminophen 5/325 mg Tablet PO SCH (10:40)
[2024-04-17] MEDS: Ondansetron PF 4 MG/2 ML Vial IVP PRN (20:30)
[2024-04-17] MEDS: Spironolactone 25 MG TAB PO SCH (20:31)
[2024-04-17] MEDS: Gabapentin 300 MG CAP PO SCH (20:32)
[2024-04-17] MEDS: HYDROcodone/Acetaminophen 5/325 mg Tablet PO PRN (22:22)
[2024-04-18 04:07] LABS: #Basophils 0.03 10x3/uL (0.0-0.2); %Basophils 0.4 % (0.0-1.0); %Eosinophils 2.7 % (0.0-10.0); %Lymphocytes 38.7 % (21.0-51.0); %Monocytes 9.1 % (0.0-10.0); %Neutrophils 48.9 % (42.0-75.0); Hematocrit 31.6 % (36.0-47.0); Hemoglobin 9.8 g/dL (12.0-16.0); Mean Corpuscular Hemoglobin 24.1 pg (27.0-31.0); Mean Corpuscular Volume 77.6 fL (78.0-98.0); Mean Platelet Volume 10.2 fL (7.4-10.4); Platelet Count 224 10x3/uL (130-400); Red Blood Cell (RBC) Count 4.07 mill/uL (4.20-5.40)
[2024-04-18 04:21] LABS: Anion Gap 15 mmol/L (10-20); BUN (Urea Nitrogen) 30 mg/dL (9.8-20.1); Calc. Creatinine Clearance 50 mL/min (70-130); Carbon Dioxide 26 mmol/L (23-31); Chloride 102 mmol/L (98-107); Estimated GFR 33; Glucose 148 mg/dL (80-115); Magnesium 2.2 mg/dL (1.6-2.6); Sodium 139 mmol/L (136-145)
[2024-04-18] MEDS: Spironolactone 25 MG TAB PO SCH (09:03)
[2024-04-18] MEDS: Gabapentin 300 MG CAP PO SCH (09:42)
[2024-04-18] MEDS: tiZANidine HCl 4 MG TAB PO SCH (09:42)
[2024-04-18] MEDS: Albumin 25% 25 GM (100 mL) BOT IVPB SCH (09:42)
[2024-04-18] MEDS: FLU (Fluad Triv) TS24-25 (65UP)/MF59C/PF 45 MCG/0.5 ML Syringe IM ONE (13:10)
[2024-04-18] MEDS: Senokot S 8.6-50 MG TAB PO SCH ×2 (16:52→20:11)
[2024-04-18] MEDS: Simethicone Chewable 80 MG TAB PO PRN (16:53)
[2024-04-18] MEDS: Ciprofloxacin 500 MG TAB PO SCH (20:11)
[2024-04-19 04:29] LABS: #Basophils 0.03 10x3/uL (0.0-0.2); %Basophils 0.4 % (0.0-1.0); %Eosinophils 3.7 % (0.0-10.0); %Lymphocytes 39.5 % (21.0-51.0); %Neutrophils 47.1 % (42.0-75.0); Hematocrit 29.2 % (36.0-47.0); Mean Corpuscular HGB CONC 30.8 g/dL (32.0-36.0); Mean Corpuscular Hemoglobin 24.2 pg (27.0-31.0); Mean Corpuscular Volume 78.5 fL (78.0-98.0); Mean Platelet Volume 10.7 fL (7.4-10.4); Platelet Count 213 10x3/uL (130-400); RBC Distribution Width 16.7 % (11.5-14.5); Red Blood Cell (RBC) Count 3.72 mill/uL (4.20-5.40)
[2024-04-19 04:53] LABS: Anion Gap 14 mmol/L (10-20); BUN (Urea Nitrogen) 35 mg/dL (9.8-20.1); Calc. Creatinine Clearance 48 mL/min (70-130); Calcium 8.9 mg/dL (7.8-10.44); Carbon Dioxide 28 mmol/L (23-31); Chloride 98 mmol/L (98-107); Estimated GFR 32; Glucose 184 mg/dL (80-115); Potassium 4.1 mmol/L (3.5-5.1); Sodium 136 mmol/L (136-145)
[2024-04-19] MEDS: traMADol HCl 50 MG TAB PO PRN (11:29)
[2024-04-19] MEDS: Furosemide 40 MG TAB PO SCH (11:32)
[2024-04-19] MEDS: hydrALAZINE 25 MG TAB PO SCH (11:34)
[2024-04-19] MEDS: Meclizine HCl 25 MG TAB PO SCH (17:37)
[2024-04-20 03:50] LABS: #Basophils 0.04 10x3/uL (0.0-0.2); %Basophils 0.6 % (0.0-1.0); %Eosinophils 3.2 % (0.0-10.0); %Lymphocytes 39.9 % (21.0-51.0); %Monocytes 7.8 % (0.0-10.0); %Neutrophils 48.2 % (42.0-75.0); Hematocrit 32.2 % (36.0-47.0); Hemoglobin 9.9 g/dL (12.0-16.0); Mean Corpuscular HGB CONC 30.7 g/dL (32.0-36.0); Mean Corpuscular Hemoglobin 24.1 pg (27.0-31.0); Mean Corpuscular Volume 78.3 fL (78.0-98.0); Mean Platelet Volume 10.3 fL (7.4-10.4); Platelet Count 253 10x3/uL (130-400); RBC Distribution Width 16.6 % (11.5-14.5); Red Blood Cell (RBC) Count 4.11 mill/uL (4.20-5.40)
[2024-04-20 04:46] LABS: Anion Gap 14 mmol/L (10-20); BUN (Urea Nitrogen) 39 mg/dL (9.8-20.1); Calc. Creatinine Clearance 50 mL/min (70-130); Calcium 9.3 mg/dL (7.8-10.44); Carbon Dioxide 28 mmol/L (23-31); Chloride 99 mmol/L (98-107); Estimated GFR 34; Glucose 135 mg/dL (80-115); Potassium 4.1 mmol/L (3.5-5.1); Sodium 137 mmol/L (136-145)
[2024-04-20] MEDS: Carvedilol 6.25 MG TAB PO SCH ×2 (09:30→17:37)
[2024-04-20] MEDS: Losartan 25 MG TAB PO SCH ×2 (14:47→20:08)
[2024-04-20] MEDS: Meclizine HCl 25 MG TAB PO PRN (15:03)
[2024-04-20] MEDS: Temazepam 15 MG CAP PO SCH (20:07)
[2024-04-21 04:37] LABS: #Basophils 0.03 10x3/uL (0.0-0.2); %Basophils 0.4 % (0.0-1.0); %Eosinophils 2.4 % (0.0-10.0); %Lymphocytes 43.8 % (21.0-51.0); %Monocytes 8.3 % (0.0-10.0); %Neutrophils 44.8 % (42.0-75.0); Hematocrit 32.6 % (36.0-47.0); Hemoglobin 10.1 g/dL (12.0-16.0); Mean Corpuscular Hemoglobin 23.9 pg (27.0-31.0); Mean Corpuscular Volume 77.1 fL (78.0-98.0); Mean Platelet Volume 9.6 fL (7.4-10.4); Platelet Count 233 10x3/uL (130-400); RBC Distribution Width 16.5 % (11.5-14.5); Red Blood Cell (RBC) Count 4.23 mill/uL (4.20-5.40)
[2024-04-21 05:01] LABS: Anion Gap 14 mmol/L (10-20); BUN (Urea Nitrogen) 43 mg/dL (9.8-20.1); Calc. Creatinine Clearance 52 mL/min (70-130); Calcium 9.1 mg/dL (7.8-10.44); Carbon Dioxide 27 mmol/L (23-31); Chloride 99 mmol/L (98-107); Estimated GFR 33; Glucose 122 mg/dL (80-115); Potassium 4.3 mmol/L (3.5-5.1); Sodium 136 mmol/L (136-145)
[2024-04-21 15:28] VITALS: BP 150/80
[2024-04-21 15:41] VITALS: TEMP 97.5
[2024-04-21] MEDS ORDERED: Minoxidil 2.5 MG TAB PO SCH ×2 (15:45→21:00)
== END 2024-04-21 19:23 | disposition home or self-care (01) | DRG 280 ==
LOC: ERS 15:26 → ERHOLD 21:46 → CCU 04-15 00:47 → PCU 04-15 21:44
PROVIDERS: ADMIT Student in an Organized Health Care Education/Training Program; ATTEND Family Medicine
DX: I13.0 Hypertensive heart and chronic kidney disease with heart failure and stage 1 through stage 4 chronic kidney disease, or unspecified chronic kidney disease (principal); I50.33 Acute on chronic diastolic (congestive) heart failure; I21.4 Non-ST elevation (NSTEMI) myocardial infarction; I16.1 Hypertensive emergency; N17.9 Acute kidney failure, unspecified; N39.0 Urinary tract infection, site not specified; I31.39 Other pericardial effusion (noninflammatory); N18.30 Chronic kidney disease, stage 3 unspecified; E11.22 Type 2 diabetes mellitus with diabetic chronic kidney disease; I48.0 Paroxysmal atrial fibrillation; J44.9 Chronic obstructive pulmonary disease, unspecified; E87.6 Hypokalemia; D64.9 Anemia, unspecified; E66.9 Obesity, unspecified; T50.2X5A Adverse effect of carbonic-anhydrase inhibitors, benzothiadiazides and other diuretics, initial encounter; N64.4 Mastodynia; Z88.2 Allergy status to sulfonamides; Z79.01 Long term (current) use of anticoagulants; Z88.0 Allergy status to penicillin; Z90.710 Acquired absence of both cervix and uterus; Z98.891 History of uterine scar from previous surgery; Z68.37 Body mass index [BMI] 37.0-37.9, adult; B96.20 Unspecified Escherichia coli [E. coli] as the cause of diseases classified elsewhere
CPT/HCPCS: 36415; 36416; 71045; 71275; 80048; 80053; 81001; 83605; 83690; 83735; 83880; 84484; 85025; 85379; 87077; 87086; 87186; 87428; 93005; 93010; 93306; 93798; 94760; 96374; 96375; J0360; J0696; J1815; J1940; J2405; J2470; J3475; J3490; J7050; P9047; Q9967

== ENCOUNTER 2024-05-28 17:09 | Inpatient (IN) | payer MEDICARE ==
[2024-05-28 18:22] LABS: #Basophils 0.04 10x3/uL (0.0-0.2); %Basophils 0.5 % (0.0-1.0); %Eosinophils 1.6 % (0.0-10.0); %Lymphocytes 26.3 % (21.0-51.0); %Monocytes 11.2 % (0.0-10.0); %Neutrophils 60.2 % (42.0-75.0); Hematocrit 33.6 % (36.0-47.0); Hemoglobin 10.4 g/dL (12.0-16.0); Mean Corpuscular Volume 77.4 fL (78.0-98.0); Mean Platelet Volume 9.6 fL (7.4-10.4); Platelet Count 186 10x3/uL (130-400); RBC Distribution Width 17.5 % (11.5-14.5); Red Blood Cell (RBC) Count 4.34 mill/uL (4.20-5.40)
[2024-05-28 18:40] LABS: ALT (SGPT) 15 U/L (Less than 34); AST (SGOT) 22 U/L (11-34); Albumin 3.8 g/dL (3.1-4.5); Alkaline Phosphatase 85 U/L (40-110); Anion Gap 16 mmol/L (10-20); BUN (Urea Nitrogen) 17 mg/dL (9.8-20.1); Calc. Creatinine Clearance 0 mL/min (70-130); Calcium 9.3 mg/dL (7.8-10.44); Carbon Dioxide 22 mmol/L (23-31); Chloride 107 mmol/L (98-107); Estimated GFR 56; Globulin 4.5 g/dL (2.4-3.5); Glucose 114 mg/dL (80-115); Potassium 3.7 mmol/L (3.5-5.1); Protein, Total 8.3 g/dL (5.8-8.1); Sodium 141 mmol/L (136-145)
[2024-05-28 18:46] LABS: Troponin I 0.033 ng/mL (< 0.028)
[2024-05-28] MEDS ORDERED: hydrALAZINE 20 MG/ML VIAL ONE (19:10)
[2024-05-28] MEDS ORDERED: Labetalol HCl 100 MG/20 ML VIAL ONE (19:10)
[2024-05-28 19:37] LABS: Bacteria/HPF None Seen HPF (None Seen); Bilirubin Negative (Negative); Blood, Urine 1+ (Negative); CAUTI Indications for Culture Fever or rigors; Clarity Clear (Clear); Glucose, Urine (Dipstick) Normal (Negative); Ketone, Urine Negative (Negative); Leukocyte Negative Leu/uL (Negative); Nitrite Negative (Negative); Protein, Urine (Dipstick) 100 mg/dL (Neg-Trace); RBC/HPF 21-50 HPF (0-3); Specific Gravity, Urine 1.015 (1.002-1.036); Squamous Epithelial 0-3 HPF (0-3); Urobilinogen Normal mg/dL (Less than 2); WBC/HPF 0-3 HPF (0-3); pH, Urine 6.5 (5.0-9.0)
[2024-05-28 19:39] LABS: Urine Culture Reflex No No
[2024-05-28] MEDS ORDERED: ALPRAZolam 0.25 MG TAB PO PRN (21:50)
[2024-05-28] MEDS ORDERED: Glucagon 1 MG/ML KIT IM PRN (22:00)
[2024-05-28] MEDS ORDERED: Dextrose 50% Abboject 50 ML SYRINGE SLOW IVP PRN (22:00)
[2024-05-28] MEDS ORDERED: Insulin Lispro 100 UNIT/ML 10 ML VIAL SC PRN (22:00)
[2024-05-28] MEDS ORDERED: Dextrose 5% in Water 1,000 ML IV PRN (22:00)
[2024-05-28] MEDS ORDERED: Acetaminophen 650 MG Suppository PR PRN (22:19)
[2024-05-28] MEDS ORDERED: Ondansetron ODT 4 MG TAB PO PRN (22:19)
[2024-05-28] MEDS ORDERED: Ondansetron PF 4 MG/2 ML Vial IVP PRN (22:19)
[2024-05-28] MEDS ORDERED: Nitroglycerin 0.4 MG TAB (25 Tab Bottle) SL PRN (22:19)
[2024-05-28] MEDS ORDERED: Losartan 25 MG TAB ONE (22:34)
[2024-05-28 22:56] LABS: Troponin I 0.036 ng/mL (< 0.028)
[2024-05-28 23:17] LABS: Cardiac Risk 4.8 (Less than 4.5)
[2024-05-28 23:42] VITALS: BMI 35.7
[2024-05-28] MEDS: Spironolactone 25 MG TAB PO SCH (23:57)
[2024-05-28] MEDS: Losartan 25 MG TAB PO SCH (23:57)
[2024-05-28] MEDS: Minoxidil 2.5 MG TAB PO SCH (23:57)
[2024-05-28] MEDS: Aspirin 325 MG TAB PO SCH (23:59)
[2024-05-29] MEDS: Penicillin V Potassium 250 MG TAB PO SCH ×2 (00:50→10:57)
[2024-05-29] MEDS: hydrALAZINE 20 MG/ML VIAL SLOW IVP PRN (00:59)
[2024-05-29 01:15] LABS: Troponin I 0.032 ng/mL (< 0.028)
[2024-05-29] MEDS: Labetalol HCl 100 MG/20 ML VIAL SLOW IVP PRN (04:06)
[2024-05-29] MEDS: Ipratropium/Albuterol 3 ML NEB NEB PRN (04:47)
[2024-05-29] MEDS: guaiFENesin ER 600 MG TAB PO SCH (04:55)
[2024-05-29] MEDS: Benzonatate 100 MG CAP PO PRN (04:55)
[2024-05-29] MEDS: Furosemide 40 MG (4 mL) VIAL SLOW IVP SCH (04:55)
[2024-05-29 05:16] LABS: Hemoglobin A1c 6.6 % (4.0-6.0)
[2024-05-29 05:36] LABS: Anion Gap 17 mmol/L (10-20); BUN (Urea Nitrogen) 23 mg/dL (9.8-20.1); Calc. Creatinine Clearance 69 mL/min (70-130); Calcium 9.1 mg/dL (7.8-10.44); Carbon Dioxide 23 mmol/L (23-31); Chloride 105 mmol/L (98-107); Estimated GFR 49; Glucose 246 mg/dL (80-115); Potassium 3.7 mmol/L (3.5-5.1); Sodium 141 mmol/L (136-145)
[2024-05-29] MEDS: Insulin Lispro 100 UNIT/ML 10 ML VIAL SC PRN (05:36)
[2024-05-29] MEDS: hydrALAZINE 25 MG TAB PO SCH (09:50)
[2024-05-29] MEDS: Carvedilol 6.25 MG TAB PO SCH (09:50)
[2024-05-29] MEDS: Losartan 25 MG TAB PO SCH (09:51)
[2024-05-29] MEDS: Gabapentin 300 MG CAP PO SCH (09:51)
[2024-05-29] MEDS: Escitalopram Oxalate 10 mg Tablet PO SCH (09:51)
[2024-05-29] MEDS: Famotidine 20 MG TAB PO SCH (09:51)
[2024-05-29] MEDS: Pantoprazole 40 MG DR.TAB PO SCH (09:51)
[2024-05-29] MEDS: Minoxidil 2.5 MG TAB PO SCH (09:51)
[2024-05-29] MEDS: Apixaban 5 MG TAB PO SCH (09:51)
[2024-05-29] MEDS: Spironolactone 25 MG TAB PO SCH (09:51)
[2024-05-29] MEDS: Aspirin Chewable 81 MG TAB PO SCH (09:51)
[2024-05-29] MEDS: DULoxetine 30 MG CAP PO SCH (09:52)
[2024-05-29] MEDS: Polyethylene Glycol 3350 17 GM Packet PO SCH (09:52)
[2024-05-29] MEDS: Acetaminophen 325 MG TAB PO PRN (09:58)
[2024-05-29 10:35] VITALS: BMI 35.7
[2024-05-29 16:30] VITALS: TEMP 97.6
[2024-05-29 17:07] VITALS: BP 228/95
[2024-05-29] MEDS ORDERED: Atorvastatin Calcium 40 MG TAB PO SCH (21:00)
[2024-05-29] MEDS ORDERED: guaiFENesin ER 600 MG TAB PO SCH (21:00)
[2024-05-29] MEDS ORDERED: Insulin Glargine 30 UNITS/0.3 ML VIAL SC SCH (21:00)
== END 2024-05-29 18:00 | disposition short-term general hospital (02) | DRG 291 ==
LOC: ERS 17:09 → 2NO 22:11 → OBSVTOIN 05-29 09:39
PROVIDERS: ADMIT Family Medicine; ATTEND Internal Medicine
DX: I13.0 Hypertensive heart and chronic kidney disease with heart failure and stage 1 through stage 4 chronic kidney disease, or unspecified chronic kidney disease (principal); I50.33 Acute on chronic diastolic (congestive) heart failure; J02.0 Streptococcal pharyngitis; I5A Non-ischemic myocardial injury (non-traumatic); I48.0 Paroxysmal atrial fibrillation; N18.30 Chronic kidney disease, stage 3 unspecified; E11.22 Type 2 diabetes mellitus with diabetic chronic kidney disease; J44.9 Chronic obstructive pulmonary disease, unspecified; F41.9 Anxiety disorder, unspecified; I16.0 Hypertensive urgency; Z98.890 Other specified postprocedural states; Z88.2 Allergy status to sulfonamides; Z88.1 Allergy status to other antibiotic agents
CPT/HCPCS: 36415; 36416; 71045; 80048; 80053; 80061; 81001; 83036; 83605; 83880; 84443; 84484; 85025; 87040; 87428; 93005; 94640; 94760; 96365; 96375; 96376; G0378; J0360; J1815; J1940; J7620

== ENCOUNTER 2025-02-03 09:57 | Inpatient (IN) | payer MEDICARE, OTHER ==
[2025-02-03 11:57] LABS: #Basophils 0.03 10x3/uL (0.0-0.2); #Eosinophils 0.11 10x3/uL (0.0-0.7); #Monocytes 0.82 10x3/uL (0.11-0.59); #Neutrophils 4.47 10x3/uL (1.40-6.50); %Basophils 0.4 % (0.0-1.0); %Eosinophils 1.4 % (0.0-10.0); %Lymphocytes 32.1 % (21.0-51.0); %Monocytes 10.2 % (0.0-10.0); %Neutrophils 55.5 % (42.0-75.0); Hematocrit 33.5 % (36.0-47.0); Hemoglobin 10.7 g/dL (12.0-16.0); Mean Corpuscular Hemoglobin 25.8 pg (27.0-31.0); Mean Corpuscular Volume 80.7 fL (78.0-98.0); Platelet Count 211 10x3/uL (130-400); Red Blood Cell (RBC) Count 4.15 mill/uL (4.20-5.40); White Blood Cell (WBC) Count 8.04 10x3/uL (4.8-10.8)
[2025-02-03] MEDS ORDERED: Ketorolac Tromethamine 30 MG (1 mL) VIAL ONE (12:13)
[2025-02-03 12:14] LABS: ALT (SGPT) 9 U/L (Less than 34); AST (SGOT) 12 U/L (11-34); Albumin 3.4 g/dL (3.1-4.5); Alkaline Phosphatase 81 U/L (40-110); Anion Gap 14 mmol/L (10-20); BUN (Urea Nitrogen) 32 mg/dL (9.8-20.1); Bilirubin, Total 0.4 mg/dL (0.3-1.2); Calc. Creatinine Clearance 0 mL/min (70-130); Calcium 9.2 mg/dL (7.8-10.44); Carbon Dioxide 26 mmol/L (23-31); Chloride 105 mmol/L (98-107); Globulin 3.8 g/dL (2.4-3.5); Glucose 164 mg/dL (80-115); Lipase 20 U/L (8-78); Potassium 4.1 mmol/L (3.5-5.1); Sodium 141 mmol/L (136-145)
[2025-02-03] MEDS ORDERED: Ondansetron PF 4 MG/2 ML Vial ONE (12:16)
[2025-02-03] MEDS ORDERED: niCARdipine 25 MG/10 ML SDV ONE ×4 (13:35→18:56)
[2025-02-03] MEDS ORDERED: Glucagon 1 MG/ML KIT IM PRN (14:33)
[2025-02-03] MEDS ORDERED: Dextrose 50% Abboject 50 ML SYRINGE SLOW IVP PRN (14:33)
[2025-02-03] MEDS ORDERED: Carvedilol 6.25 MG TAB ONE (17:01)
[2025-02-03] MEDS: Carvedilol 6.25 MG TAB PO SCH (17:04)
[2025-02-03 19:14] LABS: CAUTI Indications for Culture Dysuria,urgency,freq; Glucose, Urine (Dipstick) Normal (Negative); Leukocyte 75 Leu/uL (Negative); Protein, Urine (Dipstick) Negative (Neg-Trace); RBC/HPF None Seen HPF (0-3); Specific Gravity, Urine 1.012 (1.002-1.036)
[2025-02-03 19:18] LABS: Bacteria/HPF 1+ HPF (None Seen)
[2025-02-03 19:20] LABS: Urine Culture Reflex No No
[2025-02-03] MEDS: Ondansetron PF 4 MG/2 ML Vial IVP PRN (21:05)
[2025-02-03] MEDS: niCARdipine 25 MG in Sodium Chloride 0.9% 250 ML 250 ML IVPB SCH (21:05)
[2025-02-03] MEDS: Acetaminophen 325 MG TAB PO PRN (21:05)
[2025-02-03] MEDS: Apixaban 5 MG TAB PO SCH (21:06)
[2025-02-03] MEDS: hydrALAZINE 20 MG/ML VIAL SLOW IVP PRN (21:06)
[2025-02-03] MEDS: HYDROcodone/Acetaminophen 5/325 mg Tablet PO PRN (22:02)
[2025-02-04] MEDS: NIFEdipine XL 60 MG ER.TAB PO SCH (00:15)
[2025-02-04 04:59] LABS: #Basophils 0.03 10x3/uL (0.0-0.2); #Eosinophils 0.17 10x3/uL (0.0-0.7); #Monocytes 0.80 10x3/uL (0.11-0.59); #Neutrophils 6.00 10x3/uL (1.40-6.50); %Basophils 0.3 % (0.0-1.0); %Eosinophils 1.8 % (0.0-10.0); %Lymphocytes 27.1 % (21.0-51.0); %Monocytes 8.3 % (0.0-10.0); %Neutrophils 62.2 % (42.0-75.0); Hematocrit 35.6 % (36.0-47.0); Hemoglobin 11.1 g/dL (12.0-16.0); Mean Corpuscular Hemoglobin 25.7 pg (27.0-31.0); Mean Corpuscular Volume 82.4 fL (78.0-98.0); Platelet Count 220 10x3/uL (130-400); Red Blood Cell (RBC) Count 4.32 mill/uL (4.20-5.40); White Blood Cell (WBC) Count 9.64 10x3/uL (4.8-10.8)
[2025-02-04 05:15] LABS: Anion Gap 15 mmol/L (10-20); BUN (Urea Nitrogen) 26 mg/dL (9.8-20.1); Calc. Creatinine Clearance 59 mL/min (70-130); Calcium 9.1 mg/dL (7.8-10.44); Carbon Dioxide 23 mmol/L (23-31); Chloride 106 mmol/L (98-107); Glucose 229 mg/dL (80-115); Potassium 3.9 mmol/L (3.5-5.1); Sodium 140 mmol/L (136-145)
[2025-02-04] MEDS: Spironolactone 25 MG TAB PO SCH (07:28)
[2025-02-04] MEDS: Carvedilol 25 MG TAB PO SCH (07:28)
[2025-02-04] MEDS: Amiodarone 200 MG TAB PO SCH (07:28)
[2025-02-04] MEDS: Pantoprazole 40 MG DR.TAB PO SCH (07:28)
[2025-02-04] MEDS: Minoxidil 2.5 MG TAB PO SCH (07:29)
[2025-02-04] MEDS ORDERED: Minoxidil 2.5 MG TAB PO SCH (09:00)
[2025-02-04] MEDS ORDERED: Apixaban 5 MG TAB PO SCH (09:00)
[2025-02-05 06:50] LABS: Anion Gap 16 mmol/L (10-20); BUN (Urea Nitrogen) 26 mg/dL (9.8-20.1); Calc. Creatinine Clearance 66 mL/min (70-130); Calcium 9.2 mg/dL (7.8-10.44); Carbon Dioxide 24 mmol/L (23-31); Chloride 104 mmol/L (98-107); Glucose 199 mg/dL (80-115); Potassium 4.1 mmol/L (3.5-5.1); Sodium 140 mmol/L (136-145)
[2025-02-05] MEDS ORDERED: Insulin Glargine 30 UNITS/0.3 ML VIAL SC SCH (08:30)
[2025-02-05] MEDS: cefTRIAXone\\ROCEPHIN 1 GM in Sodium Chloride 0.9% 100 ML IVPB SCH (08:50)
[2025-02-05] MEDS: Insulin Glargine 30 UNITS/0.3 ML VIAL SC SCH (08:50)
[2025-02-05 09:47] LABS: Bacteria/HPF 4+ HPF (None Seen); CAUTI Indications for Culture Fever or rigors; Glucose, Urine (Dipstick) Normal (Negative); Leukocyte 500 Leu/uL (Negative); Protein, Urine (Dipstick) 20 mg/dL (Neg-Trace); RBC/HPF 0-3 HPF (0-3); Specific Gravity, Urine 1.011 (1.002-1.036); WBC/HPF Greater than 50 HPF (0-3)
[2025-02-05] MEDS: VANCOMYCIN 2 GRAM/400 ML Premix BAG IVPB SCH (09:50)
[2025-02-05 09:55] LABS: Urine Culture Reflex Yes Yes
[2025-02-05 11:52] LABS: CCP IgG Antibody 1.4 EliAU/mL (<7 Negative); EliA RAS New Method **** NEW METHOD ****; dsDNA IgG Antibody 0.6 IU/mL (<10 Negative)
[2025-02-05 12:40] LABS: ANA Symphony (Qualitative) Negative (Negative); ANA Symphony (Quantitative) Less than 0.1 Ratio (< 0.7 Negative)
[2025-02-06 08:52] LABS: Anion Gap 17 mmol/L (10-20); BUN (Urea Nitrogen) 25 mg/dL (9.8-20.1); Calc. Creatinine Clearance 61 mL/min (70-130); Calcium 9.9 mg/dL (7.8-10.44); Carbon Dioxide 19 mmol/L (23-31); Chloride 106 mmol/L (98-107); Glucose 184 mg/dL (80-115); Potassium 4.0 mmol/L (3.5-5.1); Sodium 138 mmol/L (136-145)
[2025-02-06] MEDS ORDERED: Vancomycin 1 GM in Premix 1 BAG IVPB SCH (10:00)
[2025-02-07] MEDS ORDERED: PNEUMOC 20-VAL CONJ-DIP CRM/PF 0.5 ML SYRINGE IM ONE (00:15)
[2025-02-07 06:15] LABS: Anion Gap 15 mmol/L (10-20); BUN (Urea Nitrogen) 32 mg/dL (9.8-20.1); Calc. Creatinine Clearance 53 mL/min (70-130); Calcium 9.5 mg/dL (7.8-10.44); Carbon Dioxide 23 mmol/L (23-31); Chloride 105 mmol/L (98-107); Glucose 204 mg/dL (80-115); Potassium 4.1 mmol/L (3.5-5.1); Sodium 139 mmol/L (136-145)
[2025-02-07] MEDS: PNEUMOC 20-VAL CONJ-DIP CRM/PF 0.5 ML SYRINGE IM ONE (14:26)
[2025-02-08 06:09] LABS: Anion Gap 17 mmol/L (10-20); BUN (Urea Nitrogen) 34 mg/dL (9.8-20.1); Calc. Creatinine Clearance 49 mL/min (70-130); Calcium 9.6 mg/dL (7.8-10.44); Carbon Dioxide 24 mmol/L (23-31); Chloride 104 mmol/L (98-107); Glucose 175 mg/dL (80-115); Potassium 4.8 mmol/L (3.5-5.1); Sodium 140 mmol/L (136-145)
[2025-02-08] MEDS: Gabapentin 100 MG CAP PO SCH (09:48)
[2025-02-08 22:41] VITALS: BMI 38.2
[2025-02-09 06:25] LABS: Anion Gap 15 mmol/L (10-20); BUN (Urea Nitrogen) 33 mg/dL (9.8-20.1); Calc. Creatinine Clearance 52 mL/min (70-130); Calcium 9.3 mg/dL (7.8-10.44); Carbon Dioxide 25 mmol/L (23-31); Chloride 105 mmol/L (98-107); Glucose 173 mg/dL (80-115); Potassium 4.5 mmol/L (3.5-5.1); Sodium 140 mmol/L (136-145)
[2025-02-09 09:33] VITALS: TEMP 98.2
[2025-02-09 15:31] VITALS: BP 159/67
== END 2025-02-09 19:30 | disposition home or self-care (01) | DRG 305 ==
LOC: ERS 09:57 → ERHOLD 14:22 → CCU 20:26 → T4-A 02-04 12:36
PROVIDERS: ADMIT Internal Medicine; ATTEND Internal Medicine
DX: I16.1 Hypertensive emergency (principal); I50.32 Chronic diastolic (congestive) heart failure; N39.0 Urinary tract infection, site not specified; I5A Non-ischemic myocardial injury (non-traumatic); E11.9 Type 2 diabetes mellitus without complications; I48.0 Paroxysmal atrial fibrillation; I13.0 Hypertensive heart and chronic kidney disease with heart failure and stage 1 through stage 4 chronic kidney disease, or unspecified chronic kidney disease; J44.9 Chronic obstructive pulmonary disease, unspecified; N18.30 Chronic kidney disease, stage 3 unspecified; F10.90 Alcohol use, unspecified, uncomplicated; M25.50 Pain in unspecified joint; B96.89 Other specified bacterial agents as the cause of diseases classified elsewhere; Z90.710 Acquired absence of both cervix and uterus; Z98.890 Other specified postprocedural states; Z88.8 Allergy status to other drugs, medicaments and biological substances; Z88.2 Allergy status to sulfonamides; Z79.899 Other long term (current) drug therapy; Z79.4 Long term (current) use of insulin
CPT/HCPCS: 36415; 36416; 70450; 71045; 80048; 80053; 81001; 83036; 83690; 83880; 84484; 85025; 86038; 86200; 86225; 87040; 87086; 87428; 93005; 96374; 96375; J0360; J0696; J1815; J1885; J3375; J7050; Q0162